=== PATIENT | female | born 1945 | race Caucasian/White ===

== ENCOUNTER 2016-08-14 08:05 | Day surgery (SDC) | payer MEDICARE, OTHER ==
[~2016-08-14 08:05] MED LIST: ACETAMINOPHEN 1000MG/100 ML PREMIX IV ONE
[2016-08-14] MEDS ORDERED: KETOROLAC 30 MG/ML VIAL IVP ONE (14:00)
[2016-08-14] MEDS ORDERED: PROPOFOL 10 MG/ML VIAL IV ONE (14:00)
[2016-08-14] MEDS ORDERED: LIDOCAINE 2% MDV (20MG/ML) 20ML VIAL IV ONE (14:00)
[2016-08-14] MEDS ORDERED: MIDAZOLAM HCL 2MG/2ML VIAL IV ONE (14:00)
[2016-08-14] MEDS ORDERED: SEVOFLURANE 250 ML INH ONE (14:00)
[2016-08-14] MEDS ORDERED: FENTANYL PF 100MCG/2ML VIAL IV ONE (14:00)
[2016-08-14] MEDS ORDERED: ONDANSETRON HCL IV 4 MG/2 ML VIAL IVP ONE (14:00)
[2016-08-14] MEDS ORDERED: BUPIVACAINE 0.25% W/EPI MPF 30ML VIAL IVP ONE (15:31)
[2016-08-14] MEDS ORDERED: HYDROCODONE/APAP 7.5/325MG TABLET PO ONE (15:31)
--- NOTE | 2016-08-16 13:12 | Operative Note ---
DATE OF SURGERY: 08/14/2016 REFERRING PHYSICIAN: Nino Nix D.O. PREOPERATIVE DIAGNOSIS: Torn medial meniscus of the right knee. POSTOPERATIVE DIAGNOSES: 1. Torn medial and lateral meniscus, right knee. 2. Chondromalacia, medial femoral condyle, right knee. OPERATIVE PROCEDURES: 1. Arthroscopic partial medial and lateral meniscectomy, right knee. 2. Arthroscopic chondroplasty, medial femoral condyle, right knee. Surgeon: Renzo Aponte D.O. DESCRIPTION: This 71-year-old female was taken to the Operating Room and placed in the supine position on the operating room table. A general anesthetic was administered and the right lower extremity was elevated. It was exsanguinated and the tourniquet inflated to 300 mmHg. Arthroscopic knee rotiz applied. Right knee prepped with Hibiclens and draped in the usual sterile fashion. An inferolateral portal was established with a 4 mm arthroscope and initial evaluation of the joint demonstrated mild chondromalacia of the patella. The trochlea appeared relatively normal. An inferomedial portal was established and probing did not reveal any gross instability of the articular cartilage of the patellofemoral joint and it was not further disturbed. The medial compartment was entered and a complex tear of the posterior horn of the medial meniscus was present with a large medial flap tear of the posterior horn and we resected back to the apex of the tear. It did extend to the meniscosynovial junction at about the 10:30 position, very near the root of the medial meniscus, and then the meniscus was tapered to a smooth contoured surface around to about the 3 o'clock position. The meniscus was then reprobed and confirmed to be stable. Subsequently the intercondylar notch was examined and found to be normal. The patient had a small area which was about 0.5 cm in dimension of a loose flap of articular cartilage of the very lateral edge on the medial femoral condyle adjacent to the intercondylar notch and utilizing the rotating shaver, we resected this unstable flap of articular cartilage. We then directed our attention to the lateral compartment and the patient demonstrated a tear of the lateral meniscus as well. These were more radial-type tears extending a distance of approximately 5 to 6 mm at the 9 o'clock position and then this was tapered in each direction to restore stability to the lateral meniscus. The articular cartilage appeared normal. The wound was copiously irrigated and suctioned. All areas were reexamined. No additional findings were present then the instruments were removed after suctioning the joint, and the portals were infiltrated with 0.25% Marcaine with epinephrine. Sterile dressings applied. Tourniquet and knee ortiz released, and the patient taken to the Recovery Room in satisfactory condition. GROSS PATHOLOGY: This patient demonstrated tears of the medial and lateral meniscus as described above. 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 Renzo Nevarezmountain vista medical centerDO bora CC: Sascha Colunga
== END 2016-08-14 11:35 | disposition home or self-care (01) ==
LOC: SUR 08:05
PROVIDERS: ATTEND Orthopaedic Surgery
DX: S83.281A Other tear of lateral meniscus, current injury, right knee, initial encounter (principal); S83.241A Other tear of medial meniscus, current injury, right knee, initial encounter; M94.261 Chondromalacia, right knee; I10 Essential (primary) hypertension; E78.00 Pure hypercholesterolemia, unspecified
CPT/HCPCS: 29880; 01400; 93005; 93010; J1885; J2405; J3010